=== PATIENT | female | born 1950 | race Caucasian/White ===

== ENCOUNTER → 2019-12-21 | Outpatient (CLI) | payer MEDICARE, OTHER ==
[~2019-12-21] MED LIST: IOPAMIDOL 370 MG/ML 200 ML INFUS..BTL INJ ONE; SODIUM CHLORIDE 0.9% 50ML 50 ML ONE
[2019-12-21 16:18] LABS: BLOOD UREA NITROGEN 9 mg/dL (7-26); BUN/CREATININE RATIO 11 (6-25); CREATININE, SERUM 0.82 mg/dL (0.57-1.11); EST GLOMERULAR FILTRATION RATE > 60 ML/MIN (60-)
--- NOTE | 2019-12-21 16:53 | Diagnostic Imaging Report ---
CT of the abdomen and pelvis with contrast TECHNIQUE: CT of the abdomen and pelvis WITH intravenous contrast and WITHOUT oral contrast. Dose modulation, iterative reconstruction, and/or weight-based adjustment of the mA/kV was utilized to reduce the radiation dose to as low as reasonably achievable. IV CONTRAST: 100 mL of Isovue-370 ORAL CONTRAST: None RADIATION DOSE: Total DLP: 257 mGy*cm COMPLICATIONS: None INDICATION: ^[id number] ^[id number] ^ACUTE ABD PAIN; Abnormal weight los. COMPARISON: None. FINDINGS: LOWER THORAX: Unremarkable. HEPATOBILIARY: No focal hepatic lesions. Gallbladder is unremarkable. No biliary ductal dilatation. SPLEEN: No splenomegaly. PANCREAS: Severe fatty atrophy. ADRENALS: No adrenal nodules. KIDNEYS/URETERS: No hydronephrosis, stones, or masses. PELVIC ORGANS/BLADDER: Urinary bladder is unremarkable. Uterus damages abnormal endometrial thickening measuring up to 1.6 cm. Probable posterior fibroid is noted. No suspicious adnexal mass. No pelvic free fluid. PERITONEUM/RETROPERITONEUM: No free air or fluid. LYMPH NODES: No lymphadenopathy. VESSELS: Negative for abdominal aortic aneurysm. GI TRACT: Stomach is moderately distended with free fluid. Multiple hyperenhancing fluid-filled small bowel loops are noted in the left mid abdomen. Negative for bowel obstruction. Numerous diverticula are noted throughout the colon without surrounding inflammatory changes. Normal appendix is noted. BONES AND SOFT TISSUES: No acute osseous abnormality. Mild multilevel degenerative changes of the spine are noted, most prominent at L5-S1. No suspicious lytic or blastic lesion is noted. Soft tissues are unremarkable. IMPRESSION: 1. Multiple hyperenhancing fluid-filled small bowel loops with mild wall thickening are concerning for enteritis. 2. Thickening of the endometrial stripe, abnormal patient's age. Consider gynecological evaluation with possible endometrial biopsy. 3. Diffuse colonic diverticulosis. Correlate with most recent colonoscopy. If none has been performed within the last 10 years, recommend GI consultation. 4. Severe fatty atrophy of the pancreas. Signed by: Rock Aguirre MD on 12/21/2019 4:50 PM
== END ==
LOC: CT 15:39
PROVIDERS: ATTEND Family Medicine
DX: R10.0 Acute abdomen (principal); R63.4 Abnormal weight loss
CPT/HCPCS: 36415; 74177; 82565; 84520; Q9967